=== PATIENT | female | born 1980 | race American Indian/Alaskan Native ===

== ENCOUNTER 2022-12-18 06:05 | Inpatient (IN) | payer OTHER ==
[~2022-12-18] VITALS: Ht 152.4 cm; Wt 79.1 kg
[~2022-12-18 06:05] MED LIST: ERYT500 PO; ESTNORT; HYDGUAL120 PO; LAMO100 PO; ONDA4ODT MM; PROM25 PO; RXONDA4ODT MM
--- NOTE | 2022-12-18 07:35 | NUR ---
Ambulatory in Day Surgery History, Chart, Medications and Allergies reviewed before start of procedure.
--- NOTE | 2022-12-18 11:56 | NUR ---
PATIENT CAME BACK FROM PACU TODAY AT 1105. POD 0 TOTAL ABD HYSTERECTOMY PATIENT IS DROWSY BUT IS EASILY AWAKENED WITH TOUCH/TALK. VS ARE WNL AND IS ON RA. PATIENT REPORTS ABD CRAMPING AND HAS SO FAR BEEN GIVEN IV FENT. AND PO ULTRAM WHICH HAS HELPED SO FAR AT THIS TIME PER PATIENT. PATIENT ALSO REPORTS NAUSEA AND WAS GIVEN IV REGLAN WHICH PATIENT REPORTS HER NAUSEA IS RESOLVING. ABD HAS A TRANSVERSE INCISION WITH MEDIPORE DRESSING THAT IS C/D/I. BOWEL TONES ARE HYPOACTIVE. SHE IS TOLERATING SMALL AMOUNTS OF PO INTAKE. VALERIO IS DRAINING PER GRAVITY WITH NO KINKS IN TUBING. PATIENT IS LAYING IN BED WITH HEATING PAD ON HER ABD AND HER CALL LIGHT IN REACH.
[2022-12-18 17:36] LABS: BASOPHILS ABSOLUTE AUTO 0.03 K/mm3 (0.00-0.23); BASOPHILS PERCENT AUTO 0 % (0-2); EOSINOPHILS ABSOLUTE AUTO 0.01 K/mm3 (0.00-0.68); EOSINOPHILS PERCENT AUTO 0 % (0-6); Hematocrit 34.1 % (33.0-51.0); Hemoglobin 10.4 g/dL (11.5-16.0); IMMATURE GRAN ABSOLUTE AUTO 0.04 K/mm3 (0.00-0.10); IMMATURE GRAN PERCENT AUTO 0 % (0-1); LYMPHOCYTES ABSOLUTE AUTO 0.69 K/mm3 (0.84-5.20); LYMPHOCYTES PERCENT AUTO 4 % (21-46); MONOCYTES ABSOLUTE AUTO 1.13 K/mm3 (0.16-1.47); MONOCYTES PERCENT AUTO 7 % (4-13); Mean Corpuscular HGB Conc 30.5 g/dL (31.5-36.5); Mean Corpuscular Volume 79 fL (80-100); Mean Platelet Volume 9.3 fL (9.1-12.4); NEUTROPHILS ABSOLUTE AUTO 14.27 K/mm3 (1.96-9.15); NEUTROPHILS PERCENT AUTO 88 % (41-73); Platelet Count 447 K/mm3 (150-400); RDW Coefficient Variation 16.8 % (11.7-14.2); RDW Standard Deviation 48.1 fL (35.1-46.3); Red Blood Cell Count 4.34 M/mm3 (3.80-5.20); White Blood Cell Count 16.17 K/mm3 (4.00-11.30)
[2022-12-18 18:01] LABS: Alanine Aminotransfer (ALT/SGP 19 U/L (12-78); Albumin, Blood 3.6 g/dL (3.4-5.0); Albumin/Globulin Ratio 1.1 (0.8-1.8); Alk Phos 62 U/L (50-136); Anion Gap 7 mmol/L (6-16); Aspartate Aminotrans (AST/SGOT 15 U/L (12-37); Bilirubin, Direct <0.1 mg/dL (0.0-0.3); Bilirubin, Indirect Unable to Calculate mg/dL (0.1-0.7); Bilirubin, Total 0.4 mg/dL (0.1-1.0); Blood Urea Nitrogen 11 mg/dL (8-24); Bun/Creatinine Ratio 16.9 (12.0-20.0); CO2, Blood 22 mmol/L (21-32); Calcium, Blood 8.3 mg/dL (8.5-10.1); Chloride, Blood 111 mmol/L (98-108); Creatinine, Blood 0.65 mg/dL (0.40-1.00); Globulin, Blood 3.2 g/dL (2.2-4.0); Glomerular Filtration Rate 113 (60-); Glucose, Blood 150 mg/dL (70-99); Sodium, Blood 140 mmol/L (136-145); Total Protein, Blood 6.8 g/dL (6.4-8.2)
--- NOTE | 2022-12-18 18:30 | NUR ---
SHIFT SUMMARY: POD [address] VALENTIN HAS BEEN CALLED MULTIPLE TIMES BY THIS NURSE DUE TO NO IMPROVEMENT OF PATIENTS NAUSEA/VOMITING SINCE COMING TO THE FLOOR. PATIENT HAS BEEN GIVEN IV ZOFRAN, IV REGLAN, AND IV/IM PHENERGAN. DR. VALENTIN HAS ORDERED LABS AND IV/IM PHENERGAN WITH NO IMPROVEMENT OF NAUSEA/VOMITING FOR PATIENT, SO SHE THEN ORDERED A HOSPITALIST CONSULT. THIS NURSE CALLED DR. PABLO FOR THE CONSULT AND REASON AND HE PLACED A PRN ATIVAN ORDER. AWAITING FOR PCU NURSE TO PLACE AN ULTRASOUND GUIDED IV AFTER SHE GIVES NIGHTSHIFT REPORT. PATIENT IS VOMITING 100-200 EMESIS WITH AN ORANGE COLOR. HER ABD TRANSVERSE INCISION HAS MEDIPORE ON IT THAT IS C/D/I. SHE WAS ABLE TO EAT SMALL AMOUNTS OF JELLO EARLIER. VALERIO IS IN PLACE PER GRAVITY WITH HECTOR COLORED URINE OUTPUT. HER VALERIO WILL BE D/C'D TOMORROW MORNING. SHE IS A SBA TO THE [facility]. CALLS APPROPRIATELY. CALL LIGHT WITHIN REACH. MOTHER IS AT BEDSIDE.
--- NOTE | 2022-12-19 03:36 | NUR ---
CELLAR PACKER SUMMARY PT IS POD 0 FOR TOTAL ABD HYSTER. PT HAS HAD INTRACTIBLE NAUSEA AND VOMITING SINCE SURGERY. PT DENIES ANY SIGNIFICANT PAIN. MEDICATED FOR N/V WITH ZOFRAN AND REGLAN WITH MINIMAL PAIN RELIEF, PT WOULD BE ABLE TO SLEEP FOR AN HOUR AT A TIME AFTER BUT WOULD QUICKLY BECOME NAUSEAS AGAIN. DR PABLO CONSULTED WITH PT AT START OF SHIFT AND PUT IN ORDER FOR IV ATIVAN FOR N/V. ATIVAN 1 MG IV HAS WORKED WELL FOR PT, ALLOWING HER TO SLEEP FOR 3-4 HOURS STRAIGHT. ABD MEDIPORE DRESSING C/D/I. VALERIO CATH IN PLACE, PER DR ROBERTO VALERIO TO STAY IN UNTIL SHE ASSESSES LATER TODAY. VSS, WILL CONTINUE TO MONITOR.
[2022-12-19 05:01] LABS: BASOPHILS ABSOLUTE AUTO 0.03 K/mm3 (0.00-0.23); BASOPHILS PERCENT AUTO 0 % (0-2); EOSINOPHILS PERCENT AUTO 0 % (0-6); Hematocrit 30.7 % (33.0-51.0); Hemoglobin 9.6 g/dL (11.5-16.0); IMMATURE GRAN ABSOLUTE AUTO 0.05 K/mm3 (0.00-0.10); IMMATURE GRAN PERCENT AUTO 0 % (0-1); LYMPHOCYTES ABSOLUTE AUTO 1.46 K/mm3 (0.84-5.20); LYMPHOCYTES PERCENT AUTO 10 % (21-46); MONOCYTES ABSOLUTE AUTO 1.56 K/mm3 (0.16-1.47); MONOCYTES PERCENT AUTO 11 % (4-13); Mean Corpuscular HGB 24.4 pg (26.0-34.0); Mean Corpuscular HGB Conc 31.3 g/dL (31.5-36.5); Mean Corpuscular Volume 78 fL (80-100); Mean Platelet Volume 9.3 fL (9.1-12.4); NEUTROPHILS ABSOLUTE AUTO 11.15 K/mm3 (1.96-9.15); NEUTROPHILS PERCENT AUTO 78 % (41-73); Platelet Count 409 K/mm3 (150-400); RDW Coefficient Variation 16.8 % (11.7-14.2); RDW Standard Deviation 47.8 fL (35.1-46.3); Red Blood Cell Count 3.93 M/mm3 (3.80-5.20); White Blood Cell Count 14.25 K/mm3 (4.00-11.30)
--- NOTE | 2022-12-19 17:56 | NUR ---
PT REPORTS HAVING VERY LITTLE PAIN. HAS TOLERATED LUNCH AND DINNER WITHOUT NAUSEA. UP IN ROOM WITH STANDBY ASSIST. ABD DRESSING DRY AND INTACT, NO DRAINAGE ON MARTHA PAD
--- NOTE | 2022-12-20 05:02 | NUR ---
REMEDY DEVELOPER SUMMARY POD 1 FOR EAN. PT IS MUCH IMPROVED TONIGHT. NAUSEA HAS COMPLETELY RESOLVED. MEDICATD FOR MINIMAL ABD PAIN AT START OF SHIFT WITH TYLENOL. PT REPORTED GOOD PAIN RELIEF. VALERIO CATH IN PLACE DRAINING YELLOW URINE. PT TO DC WITH VALERIO CATH PER DR MEJIA. VSS, WILL CONTINUE TO MONITOR.
[2022-12-20] MEDS ORDERED: ACET325 PO (12:45)
[2022-12-20] MEDS ORDERED: TRAM50 PO (12:46)
--- NOTE | 2022-12-20 13:31 | NUR ---
1300 discharged to home with parents. pt reports pain is well controlled. pt and her mother able to return demonstrate emptying of valentin catheter. ponce po food and fluids without nausea. valentin with clear yellow urine output. pt is in agreement with plan to discharge to home with valentin
== END 2022-12-20 12:55 | disposition home or self-care (01) | DRG 742 ==
LOC: SURS 06:05 → PRE IP 07:30 → SURS 10:44
PROVIDERS: ADMIT Obstetrics & Gynecology
PROC: 0UB70ZZ Excision of Bilateral Fallopian Tubes, Open Approach (ICD-10-PCS; 2022-12-18)
PROC: 0TJB8ZZ Inspection of Bladder, Via Natural or Artificial Opening Endoscopic (ICD-10-PCS; 2022-12-18)
PROC: 0UT90ZZ Resection of Uterus, Open Approach (ICD-10-PCS; principal; 2022-12-18 07:30)
DX: D25.9 Leiomyoma of uterus, unspecified (principal); D62 Acute posthemorrhagic anemia; N85.2 Hypertrophy of uterus; F31.9 Bipolar disorder, unspecified; F12.10 Cannabis abuse, uncomplicated; D72.829 Elevated white blood cell count, unspecified; N94.6 Dysmenorrhea, unspecified; N94.10 Unspecified dyspareunia; J45.909 Unspecified asthma, uncomplicated; K21.9 Gastro-esophageal reflux disease without esophagitis; N92.1 Excessive and frequent menstruation with irregular cycle; K58.9 Irritable bowel syndrome, unspecified; K64.9 Unspecified hemorrhoids; E78.00 Pure hypercholesterolemia, unspecified; G43.909 Migraine, unspecified, not intractable, without status migrainosus; F15.11 Other stimulant abuse, in remission; F10.11 Alcohol abuse, in remission; F41.9 Anxiety disorder, unspecified; F43.10 Post-traumatic stress disorder, unspecified; D75.838 Other thrombocytosis; F17.210 Nicotine dependence, cigarettes, uncomplicated; R10.2 Pelvic and perineal pain; G89.29 Other chronic pain; B85.3 Phthiriasis; Z88.5 Allergy status to narcotic agent; Z98.890 Other specified postprocedural states; Z79.899 Other long term (current) drug therapy
CPT/HCPCS: 36415; 80053; 82248; 85025; 86850; 86900; 86901; 88307; 94760; A9270; J0690; J1100; J1885; J2060; J2250; J2370; J2405; J2550; J2704; J2765; J2795; J3010; J7030; J7120